=== PATIENT | male | born 1990 | race Two or more races ===

== ENCOUNTER 2022-04-07 20:51 | Emergency (ER) | payer OTHER ==
[2022-04-07 21:10] VITALS: BP 131/84; PULSE 88; TEMP 98.7; BMI 32.5
[2022-04-08 00:01] LABS: PH,URINE 5.5 (5.0-8.0); URINE APPEARANCE CLEAR; URINE BILIRUBIN NEGATIVE (NEGATIVE); URINE COLOR YELLOW; URINE GLUCOSE (UA) NEGATIVE (NEGATIVE); URINE KETONE 1+ (NEGATIVE); URINE LEUK ESTERASE NEGATIVE (NEGATIVE); URINE NITRITE NEGATIVE (NEGATIVE); URINE PROTEIN NEGATIVE (NEGATIVE); URINE UROBILINOGEN 0.2 mg/dL (0.2-1.0)
== END 2022-04-08 01:08 | disposition home or self-care (01) ==
LOC: JER 20:51
DX: N48.1 Balanitis (principal)
CPT/HCPCS: 36415; 81003; 87086; 87491; 87591; 99281-25